=== PATIENT | male | born 1935 | race Caucasian/White ===

== ENCOUNTER 2016-10-28 08:23 | Emergency (ER) | payer OTHER ==
[2016-10-28 08:36] VITALS: BP 138/69; PULSE 88; RESP 16; TEMP 97.5; O2SAT 94
--- NOTE | 2016-10-28 08:37 | EDPHY ---
H & P Stated Complaint: pt reports rednes/discoloration increased on L foot, toe amputee 2016 Time Seen by Provider: 10/28/16 08:26 - Personal History Current Tetanus/Diphtheria Vaccine: Unsure Current Tetanus Diphtheria and Acellular Pertussis (TDAP): Unsure - Medical/Surgical History Hx Asthma: No Hx Chronic Respiratory Disease: No Hx Diabetes: No Hx Cardiac Disease: Yes Hx Renal Disease: No Hx Cirrhosis: No Hx Alcoholism: No Hx HIV/AIDS: No Hx Splenectomy or Spleen Trauma: No Other PMH: HTN, cardiac stents, neuropathy - Social History Smoking Status: Never smoked Constitutional: Initial Vital Signs Temperature (C) 36.4 C 10/28/16 08:28 Heart Rate 88 10/28/16 08:28 Respiratory Rate 16 10/28/16 08:28 Blood Pressure 138/69 H 10/28/16 08:28 O2 Sat (%) 94 10/28/16 08:28 O2 Delivery Mode Room Air Allergies/Adverse Reactions: succinylcholine [Succinylcholine] Allergy (Severe, Verified 07/26/11 13:15) Anaphylaxis doxazosin mesylate [From Cardura] Allergy (Unknown, Verified 07/26/11 13:16) Unknown Histamine H2 Inhibitors Allergy (Verified 03/11/15 17:51) Home Medications: Medication Instructions Recorded ARIPiprazole [Abilify 2 mg (*)] 2 mg PO DAILY 03/11/15 Aspirin EC [Aspirin EC 81 mg (*)] 81 mg PO DAILY@03/11/15 Cholecalciferol Vit D3 [Vitamin D3 1,000 units PO HS 03/11/15 (*)] Herbals/Supplements -Info Only 1 ea PO DAILY 03/11/15 Mirtazapine [Remeron] 45 mg PO HS 03/11/15 [place]-3 Fatty Acids [Fish Oil 1000 1,000 mg PO DAILY@03/11/15 mg (*)] Propranolol HCl [Inderal 10mg (*)] 10 mg PO DAILY 03/11/15 Venlafaxine Xr [Effexor Xr] 150 mg PO BID 03/11/15 buPROPion XL [Wellbutrin 150mg XL] 150 mg PO HS 03/11/15 clonazePAM [Klonopin (*)] 0.5 mg PO HS 03/11/15 Nicotine Polacrilex [Nicotine Gum] 4 mg BC Q4 PRN #30 gum 03/19/15 Atorvastatin Calcium 1 tab PO DAILY 01/04/16 Medical Decision Making ED Course/Re-evaluation: CHIEF COMPLAINT: Possible foot infection. HISTORY OF PRESENT ILLNESS: The patient is an 81-year-old male with a history of pre-diabetes, neuropathy, and left big toe amputation who presents with possible foot infection. Over the past 24 hours he has noticed increased redness around the spot of the amputation. He reports that it is similar to the infection that occurred after he had the toe amputated. He denies fever, chills , cough, or other complaints. REVIEW OF SYSTEMS: A 10 point review of systems was performed and is negative with the exception of the elements mentioned in the history of present illness. PHYSICAL EXAM: HR, BP, O2 Sat, RR. Temp noted General Appearance: Alert, well hydrated, appropriate, and non-toxic appearing. Head: Atraumatic without scalp tenderness or obvious injury Eyes: Pupils equal, round, reactive to light and accommodation, EOMI, no trauma , no injection. Ears: Clear bilaterally, no perforation, normal landmarks Nose: Atraumatic, no rhinorrhea, clear. Throat: There is no erythema or exudates, no lesions, normal tonsils, mucus membranes moist. Neck: Supple, 2+ carotid upstroke, nontender, no lymphadenopathy. Respiratory: No retractions, no distress, no wheezes, and no accessory muscle use. Lungs are clear to auscultation bilaterally. Cardiovascular: Regular rate and rhythm, no murmurs, rubs, or gallops. Bilateral carotid, radial, dorsalis pedis, and posterior tibial pulses intact. Good capillary refill all extremities. Gastrointestinal: Abdomen is soft, nontender, non-distended, no masses, no rebound, no guarding, no peritoneal signs. Musculoskeletal: Normal active ROM of all extremities. Large toe amputation on left foot. Erythema with blanching over spot of amputation. No red streaking up leg or significant tenderness. Neurological: Alert, appropriate, and interactive. The patient has normal DTRs and non-focal cranial nerves, motor, sensory, and cerebellar exam. Skin: No rashes, good turgor, no nodules on palpation. Past medical history: Hypertension, neuropathy, neuropathy. Past surgical history: Toe amputation. Family history: N/A. Social history: Lives in [place]. DIFFERENTIAL DIAGNOSIS: The differential diagnosis includes but is not limited to: cellulitis, osteomyelitis, abscess. MEDICAL DECISION MAKIN-year-old male with a history of neuropathy and prediabetes presents with erythema over the spot on his left foot where he had the large toe amputated a year ago. He reports that this erythema has increased over the past 24 hours and is similar to the infection he had directly after the amputation. On exam he has erythema but there is no red streaking. The foot does rani. He has no fever, chills, or other complaints. I believe this represents a cellulitis and I will treat with Doxycycline as this will cover MRSA and provide adequate bone penetration. The patient already has an appointment scheduled with Dr. Dial for when he returns from [place]. Departure - Departure Disposition: Home, Routine, Self-Care Clinical Impression: Cellulitis Qualifiers: Site of cellulitis: extremity Site of cellulitis of extremity: lower extremity Laterality: left Qualified Code(s): L03.116 - Cellulitis of left lower limb Condition: Good Instructions: Cellulitis (ED) Additional Instructions: Take the antibiotic as prescribed. Please note that this medication will make you more sensitive to sunlight. Keep your foot clean while in [place]. Follow up with Dr. Dial when you return home. Return to the emergency department for any serious worsening of condition. Referrals: Emerson Watson MD [Primary Care Provider] - As per Instructions Sourav Dial MD [Doctor of Podiatric Medicine] - As per Instructions Report Scribed for: Bebeto Hartmann Report Scribed by: Jaiden Gant Date of Report: 10/28/16 Time of Report: 08:32
[2016-10-28] MEDS ORDERED: DOXYCYCLINE HYCLATE 100 MG CAP/TAB PO ONE (08:40)
== END 2016-10-28 08:52 | disposition home or self-care (01) ==
DX: L03.116 Cellulitis of left lower limb (principal); I10 Essential (primary) hypertension; Z79.82 Long term (current) use of aspirin; Z95.5 Presence of coronary angioplasty implant and graft

== ENCOUNTER 2017-12-24 07:41 | Emergency (ER) | payer OTHER ==
--- NOTE | 2017-12-24 08:32 | EDPHY ---
H & P Time Seen by Provider: 12/24/17 08:03 HPI/ROS: HPI Constipation. 82-year-old male by private vehicle. He states that he has had issues with constipation in past. He has been seen in the emergency department for this problem in the past. He reports having a bowel movement yesterday but unable to have a bowel movement today and complaining of a in"brick" blocking his colon. He has some intermittent lower abdominal crampy discomfort. No rectal bleeding. Denies other complaints. ROS: Constitutional: No fever, no chills. No weakness. Respiratory: No cough. No shortness of breath. Cardiac: No chest pain, no palpitations. Gastrointestinal: As above, no vomiting, no diarrhea. Genitourinary: No hematuria. No dysuria or increased frequency with urination. Musculoskeletal: No back pain. No neck pain. No myalgias or arthralgias. Skin: No rashes. Neurological: No headache. No focal weakness or altered sensation. Past medical history: Hypertension, cardiac stents, neuropathy, constipation. Social history: Nonsmoker. No alcohol. He currently here by himself. Physical Exam: General Appearance: Alert, appears mildly uncomfortable but not in distress. Laying on his side. This patient is responding to questions appropriately and in full sentences. This patient appears well-hydrated and well-nourished. Eyes: Pupils equal and round no pallor or injection. No lid edema, erythema or injection. Respiratory: There are no retractions, lungs are clear to auscultation with good air movement bilaterally. Cardiovascular: Regular rate and rhythm. No murmur. Gastrointestinal: Abdomen is soft with vague and mild tenderness on palpation of the lower abdomen, no masses, bowel sounds normal. No focal tenderness at McBurney's point. No Martínez sign. Neurological: Motor sensory function is grossly intact. Cranial nerves are normal. Gait is normal. Skin: Warm and dry, no rashes. Musculoskeletal: Neck is supple and nontender. Extremities are symmetrical. All joints range without pain or impingement. Psychiatric: No agitation. No depression. Database: EKG: Imaging: Procedures: Emergency department course: Triage vital signs reviewed and are unremarkable. The patient has had success with enemas in the past. Fleets enema to be administered by the nursing staff. 8:50 a.m., patient has had a large and satisfying bowel movement after Fleet's enema. He feels much better. He feels comfortable going home at this time. Repeat abdominal exam is soft, nontender nondistended. Follow-up and return to emergency department precautions discussed with him. All of his questions were answered. He was discharged in good condition. Differential Diagnosis: The differential diagnosis on this patient includes but is not limited to constipation. Bowel obstruction, hernia, ureterolithiasis unlikely. This represents a partial list of diagnoses considered. These considerations are based on history, physical exam, past history, reassessment and diagnostic testing. Smoking Status: Never smoked Constitutional: Initial Vital Signs Temperature (C) 36.4 C 12/24/17 07:47 Heart Rate 54 L 12/24/17 07:47 Respiratory Rate 20 12/24/17 07:47 Blood Pressure 140/71 H 12/24/17 07:47 O2 Sat (%) 95 12/24/17 07:47 O2 Delivery Mode Room Air Allergies/Adverse Reactions: succinylcholine [Succinylcholine] Allergy (Severe, Verified 12/24/17 07:46) Anaphylaxis doxazosin mesylate [From Cardura] Allergy (Unknown, Verified 12/24/17 07:46) Unknown Histamine H2 Inhibitors Allergy (Verified 12/24/17 07:46) Home Medications: Medication Instructions Recorded ARIPiprazole [Abilify 2 mg (*)] 2 mg PO DAILY 03/11/15 Aspirin EC [Aspirin EC 81 mg (*)] 81 mg PO DAILY@12 03/11/15 Cholecalciferol Vit D3 [Vitamin D3 1,000 units PO HS 03/11/15 (*)] Herbals/Supplements -Info Only 1 ea PO DAILY 03/11/15 Mirtazapine [Remeron] 45 mg PO HS 03/11/15 [place]-3 Fatty Acids [Fish Oil 1000 1,000 mg PO DAILY@03/11/15 mg (*)] Propranolol HCl [Inderal 10mg (*)] 10 mg PO DAILY 03/11/15 Venlafaxine Xr [Effexor Xr] 150 mg PO BID 03/11/15 buPROPion XL [Wellbutrin 150mg XL] 150 mg PO HS 03/11/15 clonazePAM [Klonopin (*)] 0.5 mg PO HS 03/11/15 Nicotine Polacrilex [Nicotine Gum] 4 mg BC Q4 PRN #30 gum 03/19/15 Atorvastatin Calcium 1 tab PO DAILY 01/04/16 Departure - Departure Disposition: Home, Routine, Self-Care Clinical Impression: Constipation Condition: Good Instructions: Constipation (ED), High Fiber Diet (ED) Additional Instructions: Read and follow provided instructions. Follow-up with your primary care physician in 1-2 days for re-evaluation. Take your medication as prescribed. Return to the emergency department for worsening symptoms or other serious concerns. Referrals: Emerson Watson MD [Primary Care Provider] - As per Instructions
[2017-12-24 09:07] VITALS: BP 142/76
== END 2017-12-24 09:07 | disposition home or self-care (01) ==
DX: K59.00 Constipation, unspecified (principal); I10 Essential (primary) hypertension; Z79.82 Long term (current) use of aspirin; Z95.0 Presence of cardiac pacemaker

== ENCOUNTER → 2018-06-18 | Outpatient (CLI) | payer OTHER | LOC: FIMAGING 14:36 | PROVIDERS: ATTEND Radiology Diagnostic Radiology | DX: I82.431 Acute embolism and thrombosis of right popliteal vein (principal); I82.411 Acute embolism and thrombosis of right femoral vein; L97.811 Non-pressure chronic ulcer of other part of right lower leg limited to breakdown of skin; L97.821 Non-pressure chronic ulcer of other part of left lower leg limited to breakdown of skin; I87.2 Venous insufficiency (chronic) (peripheral) ==

== ENCOUNTER → 2018-12-02 | Outpatient (CLI) | payer OTHER ==
--- NOTE | 2018-12-02 18:42 | GCON ---
[f rep st] CONSULTATION DATE OF CONSULTATION: 12/02/2018 SUBJECTIVE: Matti returns to the [facility] for continued followup of a left foot i jerry. This is my 1st evaluation of this new problem. He re-presented to [facility] approximately 1 month ago after having injured his left 2nd toe. He relates that he was on a cru[place] se in [place] when he stubbed his toe. He was treated for an ulcer on the distal tip of the toe at his 1st evaluation, but on his 2nd evaluation, they noticed an area on the side of the toe as well t hat they would like me to evaluate at this time. OBJECTIVE: Evaluation today shows palpable pulses to both feet. He continues to have severe periphe ral neuropathy present bilateral. The left 2nd digit is swollen and erythematous. It is not warm to touch. There are 2 distinct ulcerations, 1 at the distal end and the other on the lateral aspect ov erlying the proximal interphalangeal joint. There is some sagittal plane contraction of the digit. It is not reducible in nature. The toe itself is not painful upon palpation, though upon palpating t he lateral ulceration, he is noted to have discomfort. Both areas have considerable hyperkeratotic t issue. After debridement of these areas, the distal end is measuring 4 x 7 x 1 mm while the lateral aspect is measuring 10 x 3 x 3 mm. This area is probing very close to bone at this time as well. IMPRESSION: 1. Diabetes. 2. Peripheral neuropathy. 3. Ulcerations, left 2nd digit. PLAN: Treatment today consisted of evaluation of the area. It was decided that debridement was nece ssary. All the hyperkeratotic tissue was removed at this time back to healthy tissue. Evaluation of the lateral ulceration concerned me enough about the possibility of osteomyelitis that I have recomm ended x-ray evaluation at this time. The area was cleaned appropriately before being dressed with Pr rey and a light sterile dressing. I will re-evaluate this problem again next Sunday with the x-ray results. We have had some preliminary discussion regarding the fact that if this is infected, he may need a surgical amputation of the site. /[id number]/MODL
== END ==
LOC: FIMAGING 16:09
PROVIDERS: ATTEND Podiatrist Primary Podiatric Medicine
DX: L97.519 Non-pressure chronic ulcer of other part of right foot with unspecified severity (principal); E11.40 Type 2 diabetes mellitus with diabetic neuropathy, unspecified